=== PATIENT | female | born 2000 | race Caucasian/White ===

== ENCOUNTER 2022-09-09 17:25 | Emergency (ER) | payer OTHER, SELFPAY ==
--- NOTE | ~2022-09-09 | US_ITS ---
EXAMINATION: US FIRST TRIMESTER CLINICAL INFORMATION: Bleeding LMP: Unknown Beta-hC COMPARISON: None available. TECHNIQUE: Transabdominal imaging was performed. FINDINGS: UTERUS AND INTRAUTERINE GESTATIONAL SAC: Uterus is normal in size and texture measuring 10.1 x 3.6 x 4.4 cm. Tiny cystic structure within the endometrium measure 2 mm in diameter, there are a small difficult to visualize, cannot rule out gestational sac which would be of 4 weeks and 4 days. This sac is too small, no pole would be visible. SUBCHORIONIC HEMORRHAGE: None OVARIES: No adnexal mass. Right: Normal Left: Normal FREE FLUID: None OTHER FINDINGS: None US/US OB pelvic and transvaginal IMPRESSION: 1. Tiny endometrial cystic structure 2 mm could be very early gestational sac versus a pseudogestational sac. 2 mm gestational sac suggests of four-week and 4 days. Cannot entirely rule out the possibility of ectopic in the right clinical setting, Attention to short-term follow-up recommended. 2. No ovarian or adnexal mass or cyst to suggest ectopic ..
--- NOTE | 2022-09-09 17:32 | ED_ITS ---
HPI - General Chief complaint: Vaginal Bleeding Stated complaint: sharp pain, Time Seen by Provider: 09/09/22 22:50 Source: patient, RN notes reviewed and old records reviewed Mode of arrival: ambulatory Limitations: no limitations History of Present Illness HPI Narrative: 22-year-old female presents for evaluation of lower abdominal pain and vaginal bleeding. Patient reports that she is , . Her last menstrual cycle was about July 28, 2022 Patient states that she had some lower abdominal cramping yesterday and noticed some vaginal bleeding earlier today She reports mild bleeding and has not noticed any blood clots Her OBGYN is at [facility]. Related Data Allergies Allergy/AdvReac Type Severity Reaction Status Date / Time No Known Allergies Allergy Unverified 12/14/19 18:38 Review of Systems Constitutional: Constitutional: Reports as per HPI, Denies chills, Denies fatigue, Denies fever(s) and Denies headache(s) ENT: Denies headache(s) Cardiovascular: Cardiovascular: Denies chest pain and Denies dyspnea Respiratory: Respiratory: Denies cough and Denies dyspnea Gastrointestinal: Gastrointestinal: Reports abdominal pain, Denies constipation and Denies vomiting Genitourinary: Genitourinary: Reports abnormal vaginal bleeding and Denies dysuria Neurologic: Denies headache(s) and Denies focal weakness Endocrine: Endocrine: Denies fatigue Physical Exam Vital Signs: Vital Signs: Last Vital Signs Temp 98.9 F 09/09/22 17:33 Pulse 100 09/09/22 17:33 Resp 18 09/09/22 17:33 BP 130/70 09/09/22 17:33 Pulse Ox 100 09/09/22 17:33 O2 Del Method Room Air 09/09/22 17:33 BMI result Body Mass Index 43.9 Const: General: healthy appearing, comfortable, no acute distress, alert and awake Nutritional Appearance: well nourished Orientation/consciousness: patient oriented x3 HEENT: Head: Yes normocephalic and Yes atraumatic Throat: Yes posterior oropharynx normal Eyes: Eyelids: Yes eyelids normal Conjunctivae: conjunctivae normal Sclerae: sclerae normal Corneas: corneas normal Pupils: Equal, round and reactive pupils present EOM: EOMs intact bilaterally Neck: Neck: Yes full ROM Resp: Effort & Inspection: normal respiratory effort, able to speak in complete sentences and not labored Cardio: Rate: regular rate Rhythm: regular rhythm GI: Inspection: No distended Palpation (GI): Soft to palpation, not firm, Tenderness to palpation present (GI) (Minimal suprapubic tenderness without lateralization. No rebound or guardi), no guarding and not rigid Auscultation: normoactive bowel sounds Skin: General skin exam: no rashes or lesions noted and elasticity normal Neuro: General: patient oriented x3 Cranial nerves: Yes Equal, round and reactive pupils present and Yes Bilaterally intact EOM present Cognition (Neuro): normal cognition Course Course Course Narrative: RME - 22 yo currently 5 weeks 5 days LMP July 29 presenting to the ER for sharp abdominal pain. She reports cramping and vaginal bleeding that started this morning around 9 am, denies clots. Plan: Basic labs, Quant HCG, Transvaginal U/S, type and screen Medications Administered Discontinued Medications Generic Name Dose Route Start Last Admin Trade Name Freq PRN Reason Stop Dose Admin Rho Immune Globulin 300 mcg 09/09/22 23:17 09/09/22 23:39 Rho(D) Immune Globulin 300 Mcg Syringe IM 09/09/22 23:18 300 mcg ONCE ONE Administration Medical Decision Making Medical Decision Making [facility] [place] Narrative: 22-year-old female who is presenting for evaluation of lower abdominal pain and vaginal bleeding. By ultrasound the gestational sac is 4 weeks and 4 days, this could be a very early . Given the bleeding we cannot entirely rule out spontaneous . Discussed with my attending, Dr Regalado, who recommends giving the RhoGAM as the patient is O negative. The patient was encouraged to return in 4 days to repeat hCG and ultrasound to completely rule out ectopic versus spontaneous . All this was discussed with the patient. Differential Diagnosis Spontaneous Threatened Early Lab Data [facility] [place] Lab Attestation statement: I reviewed the patient's lab results. 09/09/22 18:04 09/09/22 18:04 Labs: Lab Results 09/09/22 09/09/22 09/09/22 Range/Units 18:02 18:04 18:04 WBC 8.8 (4.8-10.8) X10*3/uL RBC 4.06 L (4.20-5.50) X10*6/uL Hgb 10.9 L (12.0-16.0) g/dl Hct 34.0 L (37.0-47.0) % MCV 83.7 (80.0-98.0) fL MCH 26.8 L (27.0-33.0) pg MCHC 32.1 (31.0-35.0) g/dl RDW 14.2 (11.0-16.0) % Plt Count 273 (160-400) X10*3/uL MPV 10.9 (9.4-12.3) fL Immature Gran % (Auto) 0.5 H (0.0-0.4) % Neut % (Auto) 68.4 (45-73) % Lymph % (Auto) 23.1 (20-40) % [place] % (Auto) 5.4 (2-11) % Eos % (Auto) 1.8 (0-4) % Baso % (Auto) 0.8 (0-2) % Lymph # (Auto) 2.0 (1.2-4.9) X10*3/uL [place] # (Auto) 0.5 (0.1-1.2) X10*3/uL Eos # (Auto) 0.2 (0.0-0.4) X10*3/uL Baso # (Auto) 0.1 (0.0-0.2) X10*3/uL Abs Immat Gran (auto) 0.04 H (0.00-0.03) X10*3/uL Absolute Neuts (auto) 6.0 (2.0-8.3) x10*3/uL Absolute Nucleated RBC 0.000 (0.0-0.012) X10*3/uL Nucleated RBC % (auto) 0.0 (0.0-0.2) /100WBC Sodium 138 (135-145) mmol/L Potassium 3.5 (3.3-5.1) mmol/L Chloride 108 (96-108) mmol/L Carbon Dioxide 21 L (22-29) mmol/L Anion Gap 13 (12-20) BUN 9 (9-16) mg/dL Creatinine 0.79 (0.5-1.4) mg/dL Estim Creat Clear Calc 119.0 Estimated GFR > 60 Random Glucose 82 (60-115) mg/dL Calcium 9.2 (8.4-10.2) mg/dL Magnesium 2.0 (1.6-2.6) mg/dL Total Bilirubin 0.3 (0.0-1.0) mg/dL Direct Bilirubin 0.1 (0.0-0.5) mg/dL AST 14 (5-31) U/L ALT 9 (0-31) U/L Alkaline Phosphatase 74 (39-117) U/L Total Protein 7.5 (6.5-8.0) g/dL Albumin 3.8 (3.5-5.0) g/dL Beta HCG, Quant mIU/mL Urine Color Urine Appearance Urine pH (5.0-9.0) Ur Specific [place] (1.005-1.025) Urine Protein (Neg-Trace) mg/dL Urine Glucose (UA) (Negative) mg/dL Urine Ketones (Negative) mg/dL Urine Blood (Negative) Urine Nitrite (Negative) Ur Leukocyte Esterase (Negative) Urine RBC (0-2) /HPF Urine WBC (0-5) /HPF Ur Squamous Epith Cells (0-2) /HPF Urine Bacteria (None Seen) Hyaline Casts (0-2) /LPF Blood Type O Negative 09/09/22 09/09/22 Range/Units 18:04 23:20 WBC (4.8-10.8) X10*3/uL RBC (4.20-5.50) X10*6/uL Hgb (12.0-16.0) g/dl Hct (37.0-47.0) % MCV (80.0-98.0) fL MCH (27.0-33.0) pg MCHC (31.0-35.0) g/dl RDW (11.0-16.0) % Plt Count (160-400) X10*3/uL MPV (9.4-12.3) fL Immature Gran % (Auto) (0.0-0.4) % Neut % (Auto) (45-73) % Lymph % (Auto) (20-40) % [place] % (Auto) (2-11) % Eos % (Auto) (0-4) % Baso % (Auto) (0-2) % Lymph # (Auto) (1.2-4.9) X10*3/uL [place] # (Auto) (0.1-1.2) X10*3/uL Eos # (Auto) (0.0-0.4) X10*3/uL Baso # (Auto) (0.0-0.2) X10*3/uL Abs Immat Gran (auto) (0.00-0.03) X10*3/uL Absolute Neuts (auto) (2.0-8.3) x10*3/uL Absolute Nucleated RBC (0.0-0.012) X10*3/uL Nucleated RBC % (auto) (0.0-0.2) /100WBC Sodium (135-145) mmol/L Potassium (3.3-5.1) mmol/L Chloride (96-108) mmol/L Carbon Dioxide (22-29) mmol/L Anion Gap (12-20) BUN (9-16) mg/dL Creatinine (0.5-1.4) mg/dL Estim Creat Clear Calc Estimated GFR Random Glucose (60-115) mg/dL Calcium (8.4-10.2) mg/dL Magnesium (1.6-2.6) mg/dL Total Bilirubin (0.0-1.0) mg/dL Direct Bilirubin (0.0-0.5) mg/dL AST (5-31) U/L ALT (0-31) U/L Alkaline Phosphatase (39-117) U/L Total Protein (6.5-8.0) g/dL Albumin (3.5-5.0) g/dL Beta HCG, Quant 1360 mIU/mL Urine Color Yellow Urine Appearance Clear Urine pH 6.0 (5.0-9.0) Ur Specific [place] 1.010 (1.005-1.025) Urine Protein Negative (Neg-Trace) mg/dL Urine Glucose (UA) Negative (Negative) mg/dL Urine Ketones Trace (Negative) mg/dL Urine Blood Trace H (Negative) Urine Nitrite Negative (Negative) Ur Leukocyte Esterase Moderate (2+) H (Negative) Urine RBC 0-2 (0-2) /HPF Urine WBC 0-5 (0-5) /HPF Ur Squamous Epith Cells 0-2 (0-2) /HPF Urine Bacteria None Seen (None Seen) Hyaline Casts 0-2 (0-2) /LPF Blood Type Radiology Impression Discussion of test interpretation with radiology: I have reviewed the radiologist's reading. (Possible intrauterine gestation at 4 weeks 4 days .) Discharge Plan Discharge Clinical Impression: Bleeding in early Patient Disposition: Home, Self-Care Instructions: Abdominal Pain in (ED) Additional Instructions: Your ultrasound looks like an early intrauterine gestation at 4 weeks 4 days. Your serum hCG level is 1360 However given how early in the it is we cannot entirely rule out an ectopic or threatened miscarriage. You should return in 4 days for repeat serum HCG level and pelvic ultrasound. Your treated with RhoGAM given your blood type is O-negative. Call your OBGYN to let them know you are here
[2022-09-09 17:33] VITALS: BP 130/70; PULSE 100; RESP 18; TEMP 37.2; O2SAT 100; BMI 43.9
[2022-09-09 18:08] LABS: MANUAL DIFF FLAG NO
[2022-09-09 18:09] LABS: Basophils Absolute Auto 0.1 X10*3/uL (0.0-0.2); Basophils Percent Auto 0.8 % (0-2); Eosinophils Absolute Auto 0.2 X10*3/uL (0.0-0.4); Eosinophils Percent Auto 1.8 % (0-4); Hemoglobin 10.9 g/dl (12.0-16.0); Imm Gran Abs Auto 0.04 X10*3/uL (0.00-0.03); Imm Gran Pct Auto 0.5 % (0.0-0.4); Lymphocytes Percent Auto 23.1 % (20-40); Mean Corpuscular HGB Conc 32.1 g/dl (31.0-35.0); Mean Corpuscular Hemoglobin 26.8 pg (27.0-33.0); Mean Corpuscular Volume 83.7 fL (80.0-98.0); Mean Platelet Volume 10.9 fL (9.4-12.3); Monocytes Absolute Auto 0.5 X10*3/uL (0.1-1.2); Monocytes Percent Auto 5.4 % (2-11); Neutrophils Percent Auto 68.4 % (45-73); Platelet Count 273 X10*3/uL (160-400); Red Blood Count 4.06 X10*6/uL (4.20-5.50); Red Cell Distribution Width 14.2 % (11.0-16.0); White Blood Count 8.8 X10*3/uL (4.8-10.8)
[2022-09-09 18:27] LABS: Alanine Aminotransferase 9 U/L (0-31); Albumin Level 3.8 g/dL (3.5-5.0); Alkaline Phosphatase 74 U/L (39-117); Anion Gap 13 (12-20); Aspartate Amino Transferase 14 U/L (5-31); Bilirubin Direct 0.1 mg/dL (0.0-0.5); Bilirubin Total 0.3 mg/dL (0.0-1.0); Blood Urea Nitrogen 9 mg/dL (9-16); Calcium 9.2 mg/dL (8.4-10.2); Carbon Dioxide 21 mmol/L (22-29); Chloride 108 mmol/L (96-108); Estimated Glomerular Filt Rate > 60; Glucose Random 82 mg/dL (60-115); Potassium 3.5 mmol/L (3.3-5.1); Sodium 138 mmol/L (135-145); Total Protein 7.5 g/dL (6.5-8.0)
[2022-09-09 18:34] LABS: HCG Quantitative 1360 mIU/mL
[2022-09-09 23:26] LABS: Appearance Urine Clear; Color Urine Yellow; Glucose Urine UA Negative (Negative); Leukocyte Esterase Urine Moderate (2+) (Negative); Nitrite Urine Negative (Negative); UMIC TRIGGER UACC YES; Urine Blood Trace (Negative); Urine Ketones Trace mg/dL (Negative); Urine Protein Negative (Neg-Trace)
[2022-09-09 23:37] LABS: Bacteria Urine None Seen (None Seen); Hyaline Casts Urine 0-2 /LPF (0-2); RBC Urine 0-2 /HPF (0-2); Squamous Epithelial Cell Urine 0-2 /HPF (0-2); WBC Urine 0-5 /HPF (0-5)
[2022-09-09] MEDS: Rho(D) Immune Globulin 300 MCG SYRINGE IM (23:39)
[2022-09-09 23:51] VITALS: BP 136/80; PULSE 91; RESP 18; TEMP 36.9; O2SAT 99
--- NOTE | 2022-09-09 23:59 | PC.NURSE ---
patient in the process of being discharged patient received the Rhogam injection with no issues
== END 2022-09-10 00:04 | disposition home or self-care (01) ==
PROVIDERS: Physician Assistant; Emergency Provider Internal Medicine
DX: O20.9 Hemorrhage in early pregnancy, unspecified (principal); Z3A.01 Less than 8 weeks gestation of pregnancy; R10.9 Unspecified abdominal pain
CPT/HCPCS: 36415; 76801; 76817; 80048; 80076; 81001; 83735; 84702; 85025; 86900; 86901; 96372; 99284; J2790

== ENCOUNTER 2022-09-20 13:57 | Emergency (ER) | payer OTHER, SELFPAY ==
--- NOTE | ~2022-09-20 | US_ITS ---
EXAMINATION: US OBSTETRICAL ULTRASOUND CLINICAL INFORMATION: Vaginal bleeding in early COMPARISON: None available. Real-time imaging by the facility maintenance helper. The facility maintenance helper reports retroflexed uterus. Limited exam. There is a single live intrauterine . heart rate 111 bpm. There is a yolk sac. Small area of hypoechogenicity on the left could represent implantation bleed. Region measures 7 x 3 mm. The right ovary is 2.2 x 2.4 x 2.4 cm. Low echogenicity associated with the right ovary could represent an involuting cyst. Measures 1.5 x 1.6 x 1.8 cm Left ovary is measuring 1.9 x 1.5 x 2.1 cm. There is no free fluid. US/US OB pelvic and transvaginal IMPRESSION: Single live intrauterine . Described above. Possible small implantation bleed associated
--- NOTE | 2022-09-20 14:55 | ED_ITS ---
HPI - General Chief complaint: Urogenital-Female Stated complaint: 6 weeks - bleeding Time Seen by Provider: 09/20/22 16:41 Source: patient, RN notes reviewed and old records reviewed Mode of arrival: ambulatory Limitations: no limitations History of Present Illness HPI Narrative: 22-year-old female presents for evaluation of light vaginal bleeding Patient reports that she is , between 6 and 7 weeks She follows OBGYN at [facility] She is She was seen here on 09/09/2022 for vaginal bleeding with cramping and the workup that was indeterminate as there was no obvious intrauterine gestation. Of note, the patient was given RhoGAM at this visit due to blood typing of O- negative The patient followed up with her OBGYN and was told that everything looks good The patient presents the ER today because ?I started bleeding a little bit 2 days ago She reports that she is only bleeding when she urinates. She denies any pelvic pain or abdominal cramping Related Data Allergies Allergy/AdvReac Type Severity Reaction Status Date / Time No Known Allergies Allergy Unverified 12/14/19 18:38 Review of Systems Constitutional: Constitutional: Reports as per HPI, Denies chills, Denies fatigue, Denies fever(s) and Denies headache(s) ENT: Denies headache(s) Cardiovascular: Cardiovascular: Denies chest pain and Denies dyspnea Respiratory: Respiratory: Denies cough and Denies dyspnea Gastrointestinal: Gastrointestinal: Denies abdominal pain, Denies constipation and Denies vomiting Genitourinary: Genitourinary: Reports abnormal vaginal bleeding and Denies dy suria Neurologic: Denies headache(s) and Denies focal weakness Endocrine: Endocrine: Denies fatigue PMFSH Social History Social History Alcohol intake: never Advance Directives: No Advance Directives Information Provided: No Physical Exam Vital Signs: Vital Signs: Last Vital Signs Temp 97.1 F 09/20/22 14:56 Pulse 82 09/20/22 14:56 Resp 16 09/20/22 14:56 BP 116/73 09/20/22 14:56 Pulse Ox 100 09/20/22 14:56 O2 Del Method Room Air 09/20/22 14:56 BMI result Body Mass Index 40.2 Const: General: healthy appearing, comfortable, no acute distress, alert and awake Nutritional Appearance: well nourished Orientation/consciousness: patient oriented x3 HEENT: Head: Yes normocephalic and Yes atraumatic Eyes: Eyelids: Yes eyelids normal Conjunctivae: conjunctivae normal Sclerae: sclerae normal Corneas: corneas normal Pupils: Equal, round and reactive pupils present EOM: EOMs intact bilaterally Neck: Neck: Yes full ROM Resp: Effort & Inspection: normal respiratory effort, able to speak in complete sentences and not labored GI: Palpation (GI): nontender Skin: General skin exam: no rashes or lesions noted and elasticity normal Neuro: General: patient oriented x3 Cranial nerves: Yes Equal, round and reactive pupils present and Yes Bilaterally intact EOM present Cognition (Colin ro): normal cognition Course Course Course Narrative: This is an RME: Additional HPI, ROS, PE not included below will be deferred to primary provider. Patient is a 22-year-old female with LMP of 07/31/22 who presents emergency department for evaluation of vaginal bleeding. Patient was seen in the emergency department 09/09/2022 for vaginal bleeding during at that time, by ultrasound gestational sac was 4 weeks in 4 days, she went received RhoGAM, and was advised to have repeat hCG and ultrasound in 4 days. She states the bleeding has been intermittent, had repeat hcg 09/16/22 with OB through [facility], and was advised if she developed increased bleeding or presence of clots she should present to the emergency department. she reports a 3 day history of bleeding with presence of clots which resolved as of yesterday. Denies any pain. Plan: labs, hCG, ultrasound. Medical Decision Making Medical Decision Making MDM Narrative: Patient reports slight vaginal bleeding only when urinating. No pelvic cramping or abdominal pain. Her ultrasound shows live intrauterine gestation. There is likely a small implantation bleed which was discussed with the patient. Her hCG level is appropriate for her level of . No evidence of ectopic or miscarriage at this time. The patient will follow-up with her OBGYN. Differential Diagnosis Bleeding in Threatened Missed Ectopic Lab Data [facility] Lab Attestation statement: I reviewed the patient's lab results. Serum hCG 04269. No significant lab abnormalities. UA not indicative of UTI 09/20/22 15:14 09/20/22 15:14 Labs: Lab Results 09/20/22 09/20/22 09/20/22 Range/Units 15:14 15:14 15:14 WBC 8.3 (4.8-10.8) X10*3/uL RBC 4.44 (4.20-5.50) X10*6/uL Hgb 11.9 L (12.0-16.0) g/dl Hct 37.5 (37.0-47.0) % MCV 84.5 (80.0-98.0) fL MCH 26.8 L (27.0-33.0) pg MCHC 31.7 (31.0-35.0) g/dl RDW 14.4 (11.0-16.0) % Plt Count 259 (160-400) X10*3/uL MPV 10.9 (9.4-12.3) fL Immature Gran % (Auto) 0.4 (0.0-0.4) % Neut % (Auto) 70.8 (45-73) % Lymph % (Auto) 20.7 (20-40) % [place] % (Auto) 5.8 (2-11) % Eos % (Auto) 1.6 (0-4) % Baso % (Auto) 0.7 (0-2) % Lymph # (Auto) 1.7 (1.2-4.9) X10*3/uL [place] # (Auto) 0.5 (0.1-1.2) X10*3/uL Eos # (Auto) 0.1 (0.0-0.4) X10*3/uL Baso # (Auto) 0.1 (0.0-0.2) X10*3/uL Abs Immat Gran (auto) 0.03 (0.00-0.03) X10*3/uL Absolute Neuts (auto) 5.9 (2.0-8.3) x10*3/uL Absolute Nucleated RBC 0.000 (0.0-0.012) X10*3/uL Nucleated RBC % (auto) 0.0 (0.0-0.2) /100WBC Sodium 137 (135-145) mmol/L Potassium 3.7 (3.3-5.1) mmol/L Chloride 104 (96-108) mmol/L Carbon Dioxide 23 (22-29) mmol/L Anion Gap 14 (12-20) BUN 8 L (9-16) mg/dL Creatinine 0.76 (0.5-1.4) mg/dL Estim Creat Clear Calc 127.0 Estimated GFR > 60 Random Glucose 78 (60-115) mg/dL Calcium 9.8 D (8.4-10.2) mg/dL Beta HCG, Quant 29629 mIU/mL Discharge Plan Discharge Clinical Impression: Bleeding in early Patient Disposition: Home, Self-Care Instructions: (ED) Additional Instructions: Your hormone is at an appropriate level Your ultrasound shows a live intrauterine gestation There is likely a small ?implantation bleed which is not detrimental to your baby Follow-up with your OBGYN Return for new or worsening symptoms Stand Alone Forms: Work/School Release
[2022-09-20 14:56] VITALS: BP 116/73; PULSE 82; RESP 16; TEMP 36.2; O2SAT 100; BMI 40.2
[2022-09-20 15:18] LABS: MANUAL DIFF FLAG NO
[2022-09-20 15:20] LABS: Basophils Absolute Auto 0.1 X10*3/uL (0.0-0.2); Basophils Percent Auto 0.7 % (0-2); Eosinophils Absolute Auto 0.1 X10*3/uL (0.0-0.4); Eosinophils Percent Auto 1.6 % (0-4); Hematocrit 37.5 % (37.0-47.0); Hemoglobin 11.9 g/dl (12.0-16.0); Imm Gran Abs Auto 0.03 X10*3/uL (0.00-0.03); Imm Gran Pct Auto 0.4 % (0.0-0.4); Lymphocytes Absolute Auto 1.7 X10*3/uL (1.2-4.9); Lymphocytes Percent Auto 20.7 % (20-40); Mean Corpuscular HGB Conc 31.7 g/dl (31.0-35.0); Mean Corpuscular Hemoglobin 26.8 pg (27.0-33.0); Mean Corpuscular Volume 84.5 fL (80.0-98.0); Mean Platelet Volume 10.9 fL (9.4-12.3); Monocytes Absolute Auto 0.5 X10*3/uL (0.1-1.2); Monocytes Percent Auto 5.8 % (2-11); Neutrophils Absolute Auto 5.9 x10*3/uL (2.0-8.3); Neutrophils Percent Auto 70.8 % (45-73); Platelet Count 259 X10*3/uL (160-400); Red Blood Count 4.44 X10*6/uL (4.20-5.50); Red Cell Distribution Width 14.4 % (11.0-16.0); White Blood Count 8.3 X10*3/uL (4.8-10.8)
[2022-09-20 15:39] LABS: Anion Gap 14 (12-20); Blood Urea Nitrogen 8 mg/dL (9-16); Calcium 9.8 mg/dL (8.4-10.2); Carbon Dioxide 23 mmol/L (22-29); Chloride 104 mmol/L (96-108); Estimated Glomerular Filt Rate > 60; Glucose Random 78 mg/dL (60-115); Potassium 3.7 mmol/L (3.3-5.1); Sodium 137 mmol/L (135-145)
== END 2022-09-20 17:15 | disposition home or self-care (01) ==
PROVIDERS: Nurse Practitioner Family; Emergency Provider Internal Medicine; PCP Family Medicine
DX: O20.9 Hemorrhage in early pregnancy, unspecified (principal); Z3A.01 Less than 8 weeks gestation of pregnancy; Z79.899 Other long term (current) drug therapy
CPT/HCPCS: 36415; 76801; 76817; 80048; 84702; 85025; 99282; 99284

== ENCOUNTER 2022-10-01 10:26 | Day surgery (SDC) | payer OTHER, SELFPAY ==
[2022-10-01] VITALS (10 sets, daily range): BP systolic 117–140; BP diastolic 67–90; PULSE 85–105; RESP 16; TEMP 36.2–37.1; O2SAT 99–100; BMI 39.0
--- NOTE | 2022-10-01 10:49 | ED.GENADULT ---
HPI - General Adult General Chief complaint: Vaginal Bleeding Stated complaint: sent from OB , vaginal bleeding Time Seen by Provider: 10/01/22 10:49 Source: patient Mode of arrival: ambulatory Limitations: no limitations History of Present Illness HPI narrative: Patient is a 22 year old assigned female at with a history of anemia presenting to the emergency department today with vaginal bleeding. Patient states that on 09/25/2022 she was seen at [facility] to terminate a via oral medication. Patient states that she took the first dose that day and the second dose on 09/27/2022. Patient states that she has been having increased vaginal bleeding and is passing clots. Patient states that she called her OBGYN and given her history of anemia, they recommended she come into the ER. Patient denies any dizziness, lightheadedness, abdominal pain, nausea, vomiting, fever, chills, blurry vision, double vision, loss of vision, chest pain, difficulty breathing, shortness of breath, back pain, night sweats, pain with urination, increased urinary frequency, increased urinary urgency, blood in her stool, syncope or a near syncopal episode, recent trauma or falls, bowel incontinence, bladder incontinence, bowel retention, bladder retention, or any other complaints at this time. Onset (ago): day(s) Severity: mild Severity scale (1-10): 3 Relieving factors: none Exacerbating factors: none Associated symptoms: denies other symptoms Treatments prior to arrival: none Related Data Allergies Allergy/AdvReac Type Severity Reaction Status Date / Time No Known Allergies Allergy Unverified 12/14/19 18:38 Review of Systems Constitutional: Constitutional: Reports no additional constitutional complaints, Denies chills, Denies fever(s) and Denies night sweats Eyes: Eyes: Reports no additional eye complaints, Denies blurry vision, Denies change in vision, Denies diplopia, Denies eye discharge, Denies loss of vision and Denies eye pain ENT: Denies dizziness Cardiovascular: Cardiovascular: Reports no additional cardiovascular complaints, Denies chest pain, Denies lightheadedness, Denies Loss of Consciousness and Denies dyspnea Respiratory: Respiratory: Reports no additional respiratory complaints and Denies dyspnea Gastrointestinal: Gastrointestinal: Reports no additional gastrointestinal complaints, Denies abdominal pain, Denies melena, Denies hematochezia, Denies change in bowel habits and Denies change in stool character Genitourinary: Genitourinary: Denies urinary frequency, Denies dysuria, Denies urinary incontinence, Denies urinary hesitancy and Denies urinary urgency Comments: vaginal bleeding Musculoskeletal: Musculoskeletal: Reports no additional musculoskeletal complaints, Denies numbness and Denies tingling Neurologic: Denies dizziness, Denies loss of vision, Denies numbness and Denies tingling Psychiatric: Psychiatric: Reports no additional psychiatric complaints Endocrine: Endocrine: Reports no additional endocrine complaints Hematologic/Lymphatic: Hematologic/Lymphatic: Reports no additional hematologic/lymphatic complaints Allergic/Immunologic: Allergic/Immunologic: Reports no additional allergic/immunologic complaints [facility] Past Medical History Attestation statement: The following information was validated with the patient. Source: old records reviewed and nursing notes reviewed Social History Social History Alcohol intake: never Patient Tobacco Use Status: Never used Tobacco Smoked in Last 30 Days: No Use of substances other than those prescribed or required for medical reasons: No Are you DNR?: No Advance Directives: No Advance Directives Information Provided: No Physical Exam ED Vital Signs: Vital Signs - 24 hr 10/01/22 10:30 10/01/22 10:48 Temperature 97.2 F Pulse Rate 93 88 Respiratory Rate 16 16 Blood Pressure 117/67 123/72 Pulse Oximetry 100 100 Oxygen Delivery Method Room Air Room Air BMI result Body Mass Index 39.0 Const General: cooperative, no acute distress, alert and awake Nutritional Appearance: well nourished Orientation/consciousness: patient oriented x3 Limitations: no limitations [facility] Head: Yes normal to inspection and Yes atraumatic Ears: hearing grossly normal bilaterally and external ears normal General nose exam: Normal external nose present, no nasal discharge noted and no epistaxis Face and sinus: Yes normal facial exam, No abrasion and No laceration Mouth: Normal oral and palatal mucosa present, no drooling and no muffled voice Eyes General: appearance normal, both eyes and all related structures Periorbital: periorbital findings normal Eyelids: Yes eyelids normal Conjunctivae: conjunctivae normal Pupils: Equal, round and reactive pupils present EOM: EOMs intact bilaterally Neck Neck: Yes normal visual inspection, Yes full ROM and Yes no lymphadenopathy Chest Chest palpation & inspection: normal inspection of the chest Resp Effort & Inspection: normal respiratory effort and able to speak in complete sentences Auscultation: clear to auscultation bilaterally Cardio Rate: regular rate Rhythm: regular rhythm GI Inspection: Yes normal to inspection Palpation (GI): Soft to palpation, not firm, nontender and no guarding Neuro General: patient oriented x3 and moves all extremities Cranial nerves: Yes Equal, round and reactive pupils present Cognition (Neuro): normal cognition Motor exam (neuro): 5/5 motor strength present throughout Sensory Exam: Normal double simultaneous stimulation for sensation Coordination: [id number] test normal Extrem General: Yes normal to inspection, Yes full ROM and Yes capillary refill normal Psych Appearance: grossly normal Mental Status: mental status grossly normal Affect: normal affect Attitude: cooperative Thought process: Normal thought process present Thought content: Normal thought content present Insight: Good insight present (Psych) Medications Administered Discontinued Medications Generic Name Dose Route Start Last Admin Trade Name Freq PRN Reason Stop Dose Admin Doxycycline Monohydrate 200 mg 10/01/22 14:06 10/01/22 14:15 Doxycycline Monohydrate 100 Mg Capsule PO 10/01/22 14:07 200 mg ONCE ONE Administration Medical Decision Making Medical Decision Making [facility] Narrative: Patient is a 22 year old assigned female at with a history of anemia and recent termination presenting to the emergency department today with vaginal bleeding. Patient's physical exam was unremarkable. Patient's blood work showed a decreased hgb of 9.8 [place] [address]. The rest of the patient's labs were grossly normal. Patient's urine showed no acute process. Patient's OB US showed a echogenic material within the endometrium extending to endocervical canal that likely represents a hematoma or spontaneous in progress. I consulted with OBGYN who recommended taking the patient to the OR for a suction D&C. I explained my physical exam findings as well as all test results to the patient. I answered all questions asked by the patient. Patient verbalized agreement and understanding with this treatment plan and transfer to the OR for procedure. Differential Diagnosis Differential Diagnoses: The differential diagnosis associated with the presentation includes Retained products of conception Miscarriage Incomplete Admission/Observation Consideration of admission/observation: Escalation of care including admission/observation considered Consult Healthcare Provider Management of the patient was discussed with: Target Network Analyst (spoke with OBGYN as noted in the MDM portion of this chart. ) Lab Data [facility] Lab Attestation statement: I reviewed the patient's lab results. My interpretation of these lab results is in the MDM portion of this chart. 10/01/22 11:27 10/01/22 11:27 Labs: Lab Results 10/01/22 10/01/22 10/01/22 Range/Units 11:27 11:27 11:27 WBC 9.8 (4.8-10.8) X10*3/uL RBC 3.59 L (4.20-5.50) X10*6/uL Hgb 9.8 L (12.0-16.0) g/dl Hct 30.6 L (37.0-47.0) % MCV 85.2 (80.0-98.0) fL MCH 27.3 (27.0-33.0) pg MCHC 32.0 (31.0-35.0) g/dl RDW 14.6 (11.0-16.0) % Plt Count 219 (160-400) X10*3/uL MPV 11.2 (9.4-12.3) fL Immature Gran % (Auto) 0.4 (0.0-0.4) % Neut % (Auto) 71.2 (45-73) % Lymph % (Auto) 19.9 L (20-40) % [place] % (Auto) 5.1 (2-11) % Eos % (Auto) 3.1 (0-4) % Baso % (Auto) 0.3 (0-2) % Lymph # (Auto) 2.0 (1.2-4.9) X10*3/uL [place] # (Auto) 0.5 (0.1-1.2) X10*3/uL Eos # (Auto) 0.3 (0.0-0.4) X10*3/uL Baso # (Auto) 0.0 (0.0-0.2) X10*3/uL Abs Immat Gran (auto) 0.04 H (0.00-0.03) X10*3/uL Absolute Neuts (auto) 7.0 (2.0-8.3) x10*3/uL Absolute Nucleated RBC 0.000 (0.0-0.012) X10*3/uL Nucleated RBC % (auto) 0.0 (0.0-0.2) /100WBC PT 10.5 (10.0-13.1) SEC INR 0.9 (0.9-1.1) APTT 23.0 L (26.0-36.4) SEC Sodium (135-145) mmol/L Potassium (3.3-5.1) mmol/L Chloride (96-108) mmol/L Carbon Dioxide (22-29) mmol/L Anion Gap (12-20) BUN (9-16) mg/dL Creatinine (0.5-1.4) mg/dL Estim Creat Clear Calc Estimated GFR Random Glucose (60-115) mg/dL Calcium (8.4-10.2) mg/dL Magnesium (1.6-2.6) mg/dL Total Bilirubin (0.0-1.0) mg/dL AST (5-31) U/L ALT (0-31) U/L Alkaline Phosphatase (39-117) U/L Total Protein (6.5-8.0) g/dL Albumin (3.5-5.0) g/dL Beta HCG, Quant 35539 mIU/mL Blood Type Antibody Screen Antibody Identification 10/01/22 10/01/22 Range/Units 11:27 11:27 WBC (4.8-10.8) X10*3/uL RBC (4.20-5.50) X10*6/uL Hgb (12.0-16.0) g/dl Hct (37.0-47.0) % MCV (80.0-98.0) fL MCH (27.0-33.0) pg MCHC (31.0-35.0) g/dl RDW (11.0-16.0) % Plt Count (160-400) X10*3/uL MPV (9.4-12.3) fL Immature Gran % (Auto) (0.0-0.4) % Neut % (Auto) (45-73) % Lymph % (Auto) (20-40) % [place] % (Auto) (2-11) % Eos % (Auto) (0-4) % Baso % (Auto) (0-2) % Lymph # (Auto) (1.2-4.9) X10*3/uL [place] # (Auto) (0.1-1.2) X10*3/uL Eos # (Auto) (0.0-0.4) X10*3/uL Baso # (Auto) (0.0-0.2) X10*3/uL Abs Immat Gran (auto) (0.00-0.03) X10*3/uL Absolute Neuts (auto) (2.0-8.3) x10*3/uL Absolute Nucleated RBC (0.0-0.012) X10*3/uL Nucleated RBC % (auto) (0.0-0.2) /100WBC PT (10.0-13.1) SEC INR (0.9-1.1) APTT (26.0-36.4) SEC Sodium 139 (135-145) mmol/L Potassium 3.7 (3.3-5.1) mmol/L Chloride 106 (96-108) mmol/L Carbon Dioxide 26 (22-29) mmol/L Anion Gap 11 L (12-20) BUN 6 L (9-16) mg/dL Creatinine 0.79 (0.5-1.4) mg/dL Estim Creat Clear Calc 124.7 Estimated GFR > 60 Random Glucose 78 (60-115) mg/dL Calcium 9.3 (8.4-10.2) mg/dL Magnesium 1.9 (1.6-2.6) mg/dL Total Bilirubin 0.1 (0.0-1.0) mg/dL AST 18 (5-31) U/L ALT 23 (0-31) U/L Alkaline Phosphatase 69 (39-117) U/L Total Protein 6.9 (6.5-8.0) g/dL Albumin 3.6 (3.5-5.0) g/dL Beta HCG, Quant mIU/mL Blood Type O Negative Antibody Screen POSITIVE Antibody Identification Passive D Independent Interpretation I performed an independent interpretation of an: Ultrasound Interpretation: My interpretation is in agreement with the radiologist's impression of this imaging study. EXAMINATION:? US OBSTETRICAL ULTRASOUND CLINICAL INFORMATION:? Ongoing bleeding. Question retained products of COMPARISON:? None available.? LMP: Unknown. Gestational age by maternal dates is unknown. Estimated date of delivery by maternal dates is unknown. TECHNIQUE: Transabdominal imaging of pelvis is performed. ? FINDINGS: The uterus is anteverted measuring 9.7 mL in length, 4.6 cm in AP and 5.7 cm in transverse dimension. No focal lesion seen. The endometrium stripe is thickened and measures 1.46 cm. There is an echogenic material within the endometrium extending into the endocervical canal likely hemorrhage or spontaneous in progress. The right ovary measures 3.4 x 2.3 x 2.8 cm and volume 11.2 mL. 8 appears unremarkable. Left ovary measures 2.9 x 1.6 x 2.1 cm and volume 5.2 mL. No focal lesion seen US/US OB pelvic and transvaginal IMPRESSION: No intrauterine seen. ? There is echogenic material within the endometrium extending to endocervical canal likely hematoma or spontaneous in progress. Correlate clinically. ? There is no free fluid. The ovaries unremarkable. Dictated By: Chemo Lion MD Signed By: Electronically signed by Chemo Lion MD 10/01/22 1314 Radiology Impression Discussion of test interpretation with radiology: I have reviewed the radiologist's reading. External Record Review External record reviewed: Other (reviewed all previous ED records.) Discharge Plan Discharge Clinical Impression: Vaginal bleeding, Incomplete Patient Disposition: Xfer Other Transfer Details: To OR with Dr. Lee.
--- NOTE | 2022-10-01 11:41 | PC.NURSE ---
Alert and oriented. Reports heavy bleeding this morning, soaking x 3 pads within a few hours. States weak and fatigued. Reports blood was originally dark but become honeycomb decapper. Patient stated she had a miscarriage and took medication last wednesday and wednesday to assist with removing materials. IV placed in right upper arm, states 3/10 cramping abdominal pain.
--- NOTE | 2022-10-01 11:50 | PC.NURSE ---
Vss, patient in no acute distress, off to ultrasound.
--- NOTE | 2022-10-01 13:37 | PM.GYNCN ---
GENERAL UTILITY MAINTENANCE REPAIRER - CN: HPI Data of Consult Consult date: 10/01/22 Primary Care Provider: Annetta Sher MD Consult Narrative Narrative: I was consulted on Jody Saldivar who is a 22 year old female para 1011 presenting to the emergency department today with vaginal bleeding. The patient had medical termination of at around 6 weeks of gestation on 09/25/2022 at [facility] with Mifepristone followed 48 hours afterwards with 800 mcg of misoprostol on 09/27/2022. Since then, the patient started having heavy vaginal vaginal bleeding associated with passage of blood clots and pelvic cramping that did not resolve , no fever or chills no vaginal discharge no pelvic pain or any other symptoms. The patient is Rh negative and received RhoGAM on 09/09 when he came to the emergency room with vaginal spotting. cc:: CC: COMMUNITY WORKER - Review of Systems Review of Systems ROS Unobtainable: All systems reviewed & are unremarkable except as noted in HPI and below Cardiovascular: Denies Palpatations, Loss of consciousness or Chest pain Respiratory: Denies Cough, Wheezing or Shortness of breath Musculoskeletal: Denies Low back pain Gastrointestinal: Denies Heartburn, Constipation, Diarrhea, Nausea or Vomiting Genitourinary: Denies Pain with urination, Burning with urination or Urinary frequency Neurological: Denies Migranes Psychological: Denies Depression OB PMFSH Social History Social History Alcohol intake: never Patient Tobacco Use Status: Never used Tobacco Meds Allergies Allergy/AdvReac Type Severity Reaction Status Date / Time No Known Allergies Allergy Unverified 12/14/19 18:38 GENERAL UTILITY MAINTENANCE REPAIRER Physical Exam Vitals Vital signs: Temp Pulse Resp BP Pulse Ox O2 Del Method 97.2 F 88 16 123/72 100 Room Air 10/01/22 10:30 10/01/22 10:48 10/01/22 10:48 10/01/22 10:48 10/01/22 10:48 10/01/22 10:48 BMI result Body Mass Index 39.0 Constitutional General Appearance: Healthy appearing, Well-nourished and Well-developed Psychiatric Mood and Affect: active and alert, normal mood and normal affect Skin Appearance: No rashes and No lesions Lungs Respiratory Effort: No intercostal retractions Auscultation: Clear to auscultation Cardiovascular Auscultation: RRR Abdomen Auscultation/Inspection/Palpation: Normal bowel sounds, Soft, Non-distended and No tenderness Female Genitalia (Pelvic) Vagina: Nontender Cervix: No discharge Uterus: Nontender Adnexa/Parametria: Adnexal Tenderness: None, Adnexal Mass: None, Parametrial Tenderness: None and Parametrial Mass: None Additional Comments: Blood per vagina an open cervix GENERAL UTILITY MAINTENANCE REPAIRER - Results Labs 10/01/22 11:27 10/01/22 11:27 Labs: Short CBC 10/01/22 Range/Units 11:27 WBC 9.8 (4.8-10.8) X10*3/uL Hgb 9.8 L (12.0-16.0) g/dl Hct 30.6 L (37.0-47.0) % Plt Count 219 (160-400) X10*3/uL BMP 10/01/22 11:27 Sodium 139 Potassium 3.7 Chloride 106 Carbon Dioxide 26 BUN 6 L Creatinine 0.79 Calcium 9.3 Liver Function 10/01/22 Range/Units 11:27 Total Bilirubin 0.1 (0.0-1.0) mg/dL AST 18 (5-31) U/L ALT 23 (0-31) U/L Alkaline Phosphatase 69 (39-117) U/L Albumin 3.6 (3.5-5.0) g/dL Antibody Screen Antibody Screen POSITIVE 10/01/22 11:27 Imaging US - abdomen: Radiologist's impression: ITS Impressions Pelvic/Transvag US 10/01/22 12:06 IMPRESSION: No intrauterine seen. There is echogenic material within the endometrium extending to endocervical canal likely hematoma or spontaneous in progress. Correlate clinically. There is no free fluid. The ovaries unremarkable. Assessment and Plan (1) Incomplete : Status: Acute GC/CT, BV panel and Trichomonas collected. Discussed with the patient the clinical diagnosis pointing towards incomplete /retained products of conception, the options of the treatment discussed with the patient including medical treatment , suction D&C, all pros, cons, risks and benefits were discussed with the patient and the patient the decided to go ahead with Suction D&C. so a more detailed discussion about the procedure was carried on with the patient including the technique, risks including but not limited to : bleeding, infection, uterine perforation, injury to blood vessels, bowels, ureters, bladder, possible need for blood transfusion with all its risks ( HIV, Hep b or C, anaphylaxis reactions), possible need for laparoscopy, laparotomy, or hysterectomy, possible , thromboembolic events, possibility of a negative impact on future fertility because of scar tissue development inside the uterus; alternatives of this option were discussed with the patient including but not limited to, medical termination of or doing nothing. The patient decided to go ahead with Suction D&C and signed the consent. All questions answered, the patient verbalized understanding and agreed with the plan. Doxycycline 200 mg p.o. preop given to the patient. Ultrasound notified. The patient is Rh negative and received RhoGAM on 09/09 when she came into the emergency room with vaginal spotting. Antibody screen is positive with passive D, therefore no indication for another RhoGAM injection. Instructions given the patient to schedule a 2 week postoperative appointment. This note was generated with a voice recognition program. Some errors may have been overlooked during the review of this note. Sometimes these errors may affect the content or meaning of a given sentence. Time Spent With Patient Time: Total time managing care of this patient today ____ minutes.
--- NOTE | 2022-10-01 14:39 | PC.NURSE ---
Vagina exam done by provider. Patient to be brought to OR, provider reviewed procedure with patient who consented. Doxy 200mg given, report given to OR
--- NOTE | 2022-10-01 14:53 | HO.ANESPROP2 ---
HPI - Anesthesia Eval Consult details Narrative: for Dand C emergent per surgeon for incomplete . pt ate a big brunch with wadebisunny and carroll , surgeon states emergent need for DAnd C . explained to pt need for RSI and intubation for GA PMFSH Active Problems Active Problems: All Active Problems (Updated 10/01/22 @ 14:05 by Reji Lee MD) Incomplete (Acute) Family History Family history of problems with anesthesia: No Surgical History History of Problems with Anesthesia: No Social History Social History Alcohol intake: never Patient Tobacco Use Status: Never used Tobacco Meds Allergies Allergy/AdvReac Type Severity Reaction Status Date / Time No Known Allergies Allergy Unverified 12/14/19 18:38 Exam Exam Date and Time: October 01, 2022 1453 Height,Weight and Vital Signs: Height 5 ft 3 in Weight 99.79 kg Last Vital Signs Temp 97.2 F 10/01/22 10:30 Pulse 88 10/01/22 10:48 Resp 16 10/01/22 10:48 BP 123/72 10/01/22 10:48 Pulse Ox 100 10/01/22 10:48 O2 Del Method Room Air 10/01/22 10:48 Pertinent Lab Results Pertinent Lab Results: Laboratory Tests 10/01/22 10/01/22 10/01/22 11:27 11:27 11:27 WBC 9.8 RBC 3.59 L Hgb 9.8 L Hct 30.6 L MCV 85.2 MCH 27.3 MCHC 32.0 RDW 14.6 Plt Count 219 MPV 11.2 Immature Gran % (Auto) 0.4 Neut % (Auto) 71.2 Lymph % (Auto) 19.9 L [place] % (Auto) 5.1 Eos % (Auto) 3.1 Baso % (Auto) 0.3 Lymph # (Auto) 2.0 [place] # (Auto) 0.5 Eos # (Auto) 0.3 Baso # (Auto) 0.0 Abs Immat Gran (auto) 0.04 H Absolute Neuts (auto) 7.0 Absolute Nucleated RBC 0.000 Nucleated RBC % (auto) 0.0 PT 10.5 INR 0.9 APTT 23.0 L Sodium Potassium Chloride Carbon Dioxide Anion Gap BUN Creatinine Estim Creat Clear Calc Estimated GFR Random Glucose Calcium Magnesium Total Bilirubin AST ALT Alkaline Phosphatase Total Protein Albumin Beta HCG, Quant 60701 Blood Type Antibody Screen Antibody Identification 10/01/22 10/01/22 11:27 11:27 WBC RBC Hgb Hct MCV MCH MCHC RDW Plt Count MPV Immature Gran % (Auto) Neut % (Auto) Lymph % (Auto) [place] % (Auto) Eos % (Auto) Baso % (Auto) Lymph # (Auto) [place] # (Auto) Eos # (Auto) Baso # (Auto) Abs Immat Gran (auto) Absolute Neuts (auto) Absolute Nucleated RBC Nucleated RBC % (auto) PT INR APTT Sodium 139 Potassium 3.7 Chloride 106 Carbon Dioxide 26 Anion Gap 11 L BUN 6 L Creatinine 0.79 Estim Creat Clear Calc 124.7 Estimated GFR > 60 Random Glucose 78 Calcium 9.3 Magnesium 1.9 Total Bilirubin 0.1 AST 18 ALT 23 Alkaline Phosphatase 69 Total Protein 6.9 Albumin 3.6 Beta HCG, Quant Blood Type O Negative Antibody Screen POSITIVE Antibody Identification Passive D Airway Mallampati Class: II TM Dist: >3cm Neck ROM: Full Heart: rrr Lungs: cta Assessment and Plan Assessment Anesthesia Assessment: Anesthesia Plan Discussed and Chart Reviewed Final Anesthetic Review Family History of Problems with Anesthesia: No History of Problems with Anesthesia: No NPO: Yes ASA Class: II and Emergency Final Preanesthetic Review: No Changes in Pt Med Stat and Consent Obtained/Reviewed Patient Risk: Intermediate Procedure Risk: Low Anesthetic Plan Anesthetic Plan: GA Disposition: Standard PACU
--- NOTE | 2022-10-01 15:14 | PC.NURSE ---
No purple folder completed per Moses d/t type of case. Belongings given to friend in waiting room including phone, backpack & belly button ring.
--- NOTE | 2022-10-01 15:46 | PM.OP ---
Brief Operative Note Date of Service: 10/01/22 Pre-op diagnosis: Retained Products of conception/incomplete Post-op diagnosis: same Procedure: Suction D&C Surgeon: Reji Lee MD Anesthesia: GETA Was an Intervention Nurse used for this Procedure?: No Estimated blood loss (mL): 100 Pathology: other (Retained Products of conception) Condition: stable Disposition: PACU
--- NOTE | 2022-10-01 15:47 | W.PM.OPN ---
Operative Note Operative Note Date of Service: 10/01/22 Narrative: Preop diagnosis: Incomplete /retained products of conception Operation: suction D and C under US guidiance Postop diagnosis: The same EBL: 100 cc Anesthesia: [id number] Surgeon: Reji Lee MD, FACOG Rag Grader: None Pathology: Products of conception Procedure: The patient was put in a dorsal distal mid position was scrubbed and draped in the usual sterile fashion. A sterile speculum was inserted inside the patient's vagina the anterior lip of the cervix was grasped with single-tooth tenaculum the cervix was dilated up to 7 mm. Under ultrasonographic guidance flexible 7. Suction tip was introduced inside the patient ran cavity till the fundus was hit then turning the suction 360 degrees around products of conception was sucked out toward the uterine cavity. The suction tip was taken out of the patient uterine cavity sharp curettings was followed in 4 quadrants of the uterus till a gritty feeling was felt. The suction tip was reintroduced under ultrasonographic guidance and intrauterine blood was sucked. The suction tip was taken out. Single-tooth tenaculum was removed hemostasis assured using pressure. The patient tolerated the procedure well and was transferred to the PACU in a stable condition.
== END 2022-10-01 17:21 | disposition home or self-care (01) ==
LOC: HO.ED 14:04 → HO.SSS 14:07
PROVIDERS: Obstetrics & Gynecology; Emergency Provider Emergency Medicine Emergency Medical Services; PCP Family Medicine; Visit Provider Physician Assistant Medical
PROC: (CPT 59812; principal; 2022-10-01 14:30)
DX: O07.1 Delayed or excessive hemorrhage following failed attempted termination of pregnancy (principal); Z20.2 Contact with and (suspected) exposure to infections with a predominantly sexual mode of transmission
CPT/HCPCS: 59812; 0353U; 36415; 76801; 76817; 76998; 80053; 83735; 84702; 85025; 85610; 85730; 86850; 86870; 86885; 86900; 86901; 87480; 87510; 87660; 88305; 99284; J0330; J1100; J2250; J2405; J2590; J3010

== ENCOUNTER 2022-10-05 09:05 | Outpatient (REF) | payer OTHER, SELFPAY | END 2022-10-05 09:06 | disposition home or self-care (01) | LOC: HO.LNP 09:05 | PROVIDERS: Visit Provider Obstetrics & Gynecology | DX: Z13.89 Encounter for screening for other disorder (principal) ==

== ENCOUNTER 2022-10-07 12:25 | Outpatient (REF) | payer OTHER, SELFPAY ==
[2022-10-07 14:25] LABS: HCG Quantitative 746 mIU/mL
== END 2022-10-07 12:26 | disposition home or self-care (01) ==
LOC: HO.LAB 12:25
PROVIDERS: PCP Family Medicine; Visit Provider Obstetrics & Gynecology
DX: O03.4 Incomplete spontaneous abortion without complication (principal)
CPT/HCPCS: 36415; 84702

== ENCOUNTER 2022-10-07 13:53 | Outpatient (AMB) | payer OTHER, SELFPAY ==
--- NOTE | 2022-10-07 13:59 | A.OFFVIS_ITS ---
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 Doing well with no complaints. No fever or chills, no cramping or vaginal bleeding. Pathology showed the following: Products of conception, curettage:? -Immature chorionic villi with nucleated red blood cells. -Trophoblastic cells within basalis and myometrium, consistent with placental implantation site.? -Fragments of decidua and hypersecretory endometrium with focal breakdown. Patient is Rh negative with antibody D positive, received RhoGAM on 09/09 [facility] Surgical History History of dilatation and curettage Hx of section Social History Household Members: Significant Other Household Members Other:: daughter Housing: Apartment Alcohol intake: never Patient Tobacco Use Status: Never used Tobacco Current occupational status: employed Current occupation: [employer] Sexually active: Yes Sexual orientation: Straight/Heterosexual Gender identity: Female Female Reproductive History Menstrual Total pregnancies: 2 Full term: 1 Number of Living Children: 1 Ab spontaneous: 1 Review of Systems Const All systems reviewed & are unremarkable except as noted in HPI and below Reports as per HPI and Reports no additional complaints GI Reports no additional complaints Reports no additional complaints Physical Exam Vital Signs: Last Vital Signs BP 124/76 10/07/22 14:02 BMI result Body Mass Index 39.9 Assessment & Plan Assessment & Plan (1) Incomplete : Comment: Status post suction D&C Code(s): O03.4 - Incomplete spontaneous without complication Plan: Discussed with the patient the results of her pathology, instructions the patient to call in case of fever of from 0.4, abdominal pain, heavy vaginal bleeding. Offered the patient different options of control, the patient declined at this point. Will repeat hCG and follow it down to non levels. Instructions the patient to schedule a 2 week follow-up appoint All questions answered, the patient verbalized understanding Orders: Orders HCG Quantitative 2 Weeks O03.4 - Incomplete spontaneous without complication Coding Level of Care Code Est Pt Level 3 (42412) Diagnoses Incomplete O03.4
[2022-10-07 14:02] VITALS: BP 124/76; BMI 39.9
== END 2022-10-07 14:47 | disposition home or self-care (01) ==
LOC: HO.HWS 13:53
PROVIDERS: PCP Family Medicine; Visit Provider Obstetrics & Gynecology
DX: O03.4 Incomplete spontaneous abortion without complication (principal)
CPT/HCPCS: 99213

== ENCOUNTER 2022-12-08 10:57 | Outpatient (REF) | payer OTHER, SELFPAY ==
[2022-12-08 13:02] LABS: HCG Quantitative < 2 mIU/mL
== END 2022-12-08 10:58 | disposition home or self-care (01) ==
LOC: HO.LAB 10:57
PROVIDERS: PCP Family Medicine; Visit Provider Obstetrics & Gynecology
DX: O03.4 Incomplete spontaneous abortion without complication (principal); Z98.890 Other specified postprocedural states
CPT/HCPCS: 36415; 84702

== ENCOUNTER 2022-12-08 10:57 | Outpatient (AMB) | payer OTHER, SELFPAY ==
--- NOTE | 2022-12-08 11:06 | MHC.OFFVIS ---
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 The patient is doing well with no complaints. Pathology showed the follow-up: Products of conception, curettage: -Immature chorionic villi with nucleated red blood cells. -Trophoblastic cells within basalis and myometrium, consistent with placental implantation site. -Fragments of decidua and hypersecretory endometrium with focal breakdown HCG dropped from 10,309 on 10/01 down to 746 on 10/07 PFSH Surgical History History of dilatation and curettage Hx of section Social History Household Members: Significant Other Household Members Other:: daughter Housing: Apartment Alcohol intake: never Patient Tobacco Use Status: Never used Tobacco Current occupational status: employed Current occupation: [employer] Sexual orientation: Straight/Heterosexual Gender identity: Female Female Reproductive History Menstrual Date of last menstrual period: 11/12/22 Review of Systems Const All systems reviewed & are unremarkable except as noted in HPI and below Reports as per HPI and Reports no additional complaints GI Reports no additional complaints Reports no additional complaints Assessment & Plan Assessment & Plan (1) Incomplete : Comment: Status post suction D&C Code(s): O03.4 - Incomplete spontaneous without complication Plan: Will Repeat hCG quantitative and follow it down to 0. Offered the patient different options of control, the patient declined. Instructions given the patient to schedule annual exam point with the coming 3 months all questions answered, the patient verbalized understanding Coding Level of Care Code Est Pt Level 3 (67349) Diagnoses Incomplete O03.4
[2022-12-08 11:08] VITALS: BP 112/66; BMI 39.8
== END 2022-12-08 11:20 | disposition home or self-care (01) ==
PROVIDERS: PCP Family Medicine; Visit Provider Obstetrics & Gynecology
DX: O03.4 Incomplete spontaneous abortion without complication (principal)
CPT/HCPCS: 99213